=== PATIENT | female | born 1970 | race Caucasian/White ===

== ENCOUNTER 2018-04-23 17:15 | Emergency (ER) | END 2018-04-23 20:08 | disposition home or self-care (01) ==

== ENCOUNTER 2018-06-06 13:15 | Emergency (ER) | END 2018-06-06 15:00 | disposition home or self-care (01) ==

== ENCOUNTER 2019-05-07 09:59 | Day surgery (SDC) | payer OTHER ==
[~2019-05-07] VITALS: Ht 170.2 cm; Wt 60.7 kg
[~2019-05-07 09:59] MED LIST: CPR3OO3.5 RIGHT EYE; HYDR-3980 PO
[2019-05-07 10:51] VITALS: Ht 170.2 cm; Wt 60.7 kg
[2019-05-07] MEDS ORDERED: GABAPENTIN (10:58)
[2019-05-07] MEDS ORDERED: FLAGYL (10:58)
[2019-05-07 11:16] VITALS: BP 125/73; PULSE 56; RESP 11
--- NOTE | 2019-05-07 11:38 | PREAC ---
Date/Time of Note Date/Time of Note DATE: 05/07/19 TIME: 11:36 Anesthesia Eval and Record Evaluation Time Pre-Procedure Interview DATE: 05/07/19 TIME: 11:36 Age 48 Sex female NPO: 8 hrs Preoperative diagnosis Abdominal Pain, screening, CBH, Chronic Diarrhea Planned procedure Colonoscopy Past Medical History Past Medical History: Includes Neuro: Other (s/p Craniotomy) Psych: Depression, Anxiety Surgery & Anesthesia Issues No known issue Meds Anticoagulation: No Beta Giana within 24 hr: No Reason Beta Giana not given: Pt. not on B-Giana Reported Medications [Flagyl] No Conflict Check 05/07/19 [Gabapentin] No Conflict Check 05/07/19 Discontinued Scripts Ciprofloxacin Opht* (Ciloxan*) 0.3%-3.5 Opht Oint, 1 APPLIC RIGHT EYE TID for 7 Days, #1 BOTTLE Prov:PRINCE HANSEN PA-C 04/23/18 Hydrocodone/Acetaminophen ([place] 10-325 Tablet) 1 Each Tablet, 1 TAB PO Q6H PRN for PAIN, #7 TAB Prov:SONI HOWARD PHARMACY TECHNOLOGIST 03/22/18 Meds reviewed: Yes Allergies Coded Allergies: No Known Allergy (Unverified , 05/07/19) Allergies Reviewed: Yes Labs/Studies Labs Reviewed: Reviewed by anesthesiologist test: N/A Studies: ECG (n/a), CXR (n/a) Pre-procedure Exam Last vitals Vital Signs Date Temp Pulse Resp B/P (MAP) Pulse Ox O2 O2 Flow FiO2 Time Delivery Rate 05/07/19 97.9 56 11 125/73 97 Room Air 11:16 (90) Airway: Adequate mouth opening, Adequate thyromental dist Mallampati: Mallampati II Teeth: Normal Lung: Normal Heart: Normal ASA Physical Status ASA physical status: 2 Emergency: None Planned Anesthetic General/MAC: MAC Planned Pain Management Parenteral pain med Pre-operative Attestations Prior to commencing anesthesia and surgery, the patient was re-evaluated, there was verification of: *The patient's identity *The results of appropriate recent lab work and preoperative vital signs *The above evaluation not changing prior to induction *Anesthetic plan, risk benefits, alternative and complications discussed with patient/family; questions answered; patient/family understands, accepts and wishes to proceed. THOMAS FOLEY MD May 07, 2019 11:38
[2019-05-07] MEDS ORDERED: PROPOFOL 20 ML ONE (11:59)
--- NOTE | 2019-05-07 12:01 | PAC ---
Date/Time of Note Date/Time of Note DATE: 05/07/19 TIME: 12:00 Post-Anesthesia Notes Post-Anesthesia Note Last documented vital signs Vital Signs Date Temp Pulse Resp B/P (MAP) Pulse Ox O2 O2 Flow FiO2 Time Delivery Rate 05/07/19 97.9 56 11 125/73 97 Room Air 12:06 (90) Activity: WNL Respiratory function: WNL Cardiovascular function: WNL Mental status: Baseline Pain reasonably controlled: Yes Hydration appropriate: Yes Nausea/Vomiting absent: Yes THOMAS FOLEY MD May 07, 2019 12:01
[2019-05-07 12:31] VITALS: BP 111/71; RESP 13
== END 2019-05-07 12:45 | disposition home or self-care (01) ==
LOC: GIL 09:59
PROVIDERS: ATTEND Internal Medicine Gastroenterology
DX: Z12.11 Encounter for screening for malignant neoplasm of colon (principal); D12.8 Benign neoplasm of rectum
CPT/HCPCS: 45380; 88305; Z7610